=== PATIENT | female | born 1985 | race African-American/Black ===

== ENCOUNTER 2023-02-25 07:02 | Day surgery (SDC) | payer OTHER ==
[~2023-02-25 07:02] MED LIST: CYCLOBENZAPRINE10 MG PO; DICLOFENAC POTA50 MG PO; PAMELOR10 M1 PO; VOLTAREN ARTHRI20 GM TOP
== END 2023-02-25 14:10 | disposition home or self-care (01) ==
LOC: CIR.AMB 07:02
PROVIDERS: ATTEND Obstetrics & Gynecology
DX: N93.8 Other specified abnormal uterine and vaginal bleeding (principal); Z30.432 Encounter for removal of intrauterine contraceptive device; Z20.822 Contact with and (suspected) exposure to COVID-19

== ENCOUNTER 2024-05-27 12:37 | Emergency (ER) | payer OTHER ==
[~2024-05-27] VITALS: Ht 165.1 cm; Wt 54.4 kg
[2024-05-27] MEDS ORDERED: PAMELOR10 M1 (13:10)
[2024-05-27] MEDS ORDERED: ACETAMINOPHEN 500 MG GEL..CAP PO ONE (14:00)
[2024-05-27 14:28] LABS: HEMATOCRIT 41.8 % (36.0-45.00); HEMOGLOBIN 14.2 g/dL (12.0-15.00); MEAN CELL VOLUME 97.1 fL (80.00-100.00); MEAN CORPUSCULAR HEMOGLOBIN 32.9 pg (27.00-32.0); MEAN CORPUSCULAR HGB CONC 33.9 g/dl (32.0-36.0); PLATELET COUNT 294 K/uL (150-450); RED CELL DISTRIBUTION WIDTH 13.1 % (11.5-14.5)
[2024-05-27 14:35] LABS: PH,URINE 6.5 (5.0-8.0); URINE APPEARANCE Clear; URINE BILIRRUBIN Negative (NEGATIVE); URINE BLOOD Moderate; URINE COLOR Yellow; URINE GLUCOSE Negative (NEGATIVE); URINE KETONE Negative (NEGATIVE); URINE LEUKOCYTE Negative; URINE NITRATE Negative; URINE PROTEIN Negative (NEGATIVE); URINE UROBILINOGEN 0.2 E.U./dl
[2024-05-27 14:36] LABS: URINE BACTERIA 40.2 uL (0.0-1933); URINE RBC 2.5 uL (0.0-20.8)
[2024-05-27 14:45] LABS: URINE WBC 0.9 uL (0.0-23.2)
[2024-05-27] MEDS ORDERED: KETO10TA2 PO (16:44)
[2024-05-27] MEDS ORDERED: KETOROLAC TROMETHAMINE 60 MG VIAL IM ONE ×2 (16:45→16:49)
== END 2024-05-27 16:58 ==
LOC: ER 12:38
PROVIDERS: Nurse Practitioner Family
DX: N94.6 Dysmenorrhea, unspecified (principal)